=== PATIENT | female | born 1940 | race Caucasian/White ===

== ENCOUNTER → 2018-04-22 | Outpatient (CLI) | payer MEDICARE | LOC: GMAE 13:09 | PROVIDERS: ATTEND Family Medicine | DX: E03.9 Hypothyroidism, unspecified (principal) ==

== ENCOUNTER → 2019-06-07 | Outpatient (CLI) | payer MEDICARE | LOC: GMAE 14:24 | PROVIDERS: ATTEND Family Medicine | DX: E03.9 Hypothyroidism, unspecified (principal); E78.2 Mixed hyperlipidemia; I48.0 Paroxysmal atrial fibrillation; Z79.899 Other long term (current) drug therapy ==